=== PATIENT | female | born 1995 | race Caucasian/White ===

== ENCOUNTER 2020-06-06 19:00 | Inpatient (IN) | payer MEDICAID ==
[~2020-06-06] VITALS: Ht 160 cm; Wt 108.6 kg
--- NOTE | 2020-06-06 19:20 | NUR ---
PADMA JAIN presented to unit via ambulatory from ED, accompanied by s.o, with c/o INDUCTION. PADMA JAIN weighed, gowned, voided, and to bed. EFHM and TOCO applied, VS taken. PADMA JAIN oriented to bed controls, call light, TV, heat, and A/C controls.
[2020-06-06 19:50] VITALS: BP 136/44
[2020-06-06 20:35] VITALS: BP 120/74
[2020-06-06] MEDS ORDERED: NS IV 1000 ML 1,000 ML ONE (21:39)
[2020-06-06] MEDS ORDERED: D5 LR IV SOLUTION 1,000 ML IV ONE (21:39)
[2020-06-06] MEDS ORDERED: MISOPROSTOL 100 MCG (CYTOTEC) TAB PO ONE (22:15)
[2020-06-06] MEDS ORDERED: MINERAL OIL CONCENTRATE 99.9% 15 ML UDC TOP PRN (22:15)
[2020-06-06] MEDS ORDERED: NS IV 1000 ML 1,000 ML IV SCH (22:15)
[2020-06-06] MEDS ORDERED: TERBUTALINE INJ 1 MG/ML (BRETHINE) AMP SC PRN (22:15)
[2020-06-06 22:25] VITALS: BP 128/86
[2020-06-06 22:42] LABS: BASOPHILS % (AUTO) 0 % (0-10); EOSINOPHILS # (AUTO) 0.2 10^3/uL (0.0-0.3); EOSINOPHILS % (AUTO) 2 % (0-10); HEMATOCRIT 39 % (35-52); HEMOGLOBIN 13.3 g/dL (11.5-16.0); LYMPHOCYTES # (AUTO) 2.1 10^3/uL (1.0-4.0); LYMPHOCYTES % (AUTO) 25 % (12-44); MEAN CORPUSCULAR HEMOGLOBIN 30 pg (25-34); MEAN CORPUSCULAR HGB CONC 34 g/dL (32-36); MEAN CORPUSCULAR VOLUME 90 fL (80-99); MEAN PLATELET VOLUME 10.8 fL (9.0-12.2); MONOCYTES # (AUTO) 0.5 10^3/uL (0.0-1.0); MONOCYTES % (AUTO) 6 % (0-12); NEUTROPHILS # (AUTO) 5.6 10^3/uL (1.8-7.8); NEUTROPHILS % (AUTO) 66 % (42-75); PLATELET COUNT 165 10^3/uL (130-400); WHITE BLOOD COUNT 8.4 10^3/uL (4.3-11.0)
[2020-06-06 22:45] VITALS: BP 117/76
[2020-06-06] MEDS: D5 LR IV SOLUTION 1,000 ML IV SCH (22:47)
[2020-06-07] VITALS (84 sets, daily range): BP systolic 87–174; BP diastolic 48–96
[2020-06-07] MEDS ORDERED: MISOPROSTOL 100 MCG (CYTOTEC) TAB PO SCH (02:15)
[2020-06-07] MEDS ORDERED: CATHETER FLUSH 10 ML SYR IV SCH ×2 (06:00→22:00)
[2020-06-07] MEDS: D5 LR IV SOLUTION 1,000 ML IV SCH ×2 (06:26→14:27)
[2020-06-07] MEDS ORDERED: fentaNYL 2 mcg/ml BUPIVA 0.125 100 ML ONE (09:18)
[2020-06-07] MEDS ORDERED: LIDOCAINE PF 2% 5 ML (XYLOCAINE) VIAL ONE (10:06)
[2020-06-07] MEDS ORDERED: fentaNYL INJECTION 100 MCG/2 ML AMP ONE (10:06)
[2020-06-07] MEDS ORDERED: BUPIVACAINE 0.25% 30 ML (SENSORCAINE) VIAL ONE (10:06)
[2020-06-07] MEDS ORDERED: ONDANSETRON 4 MG/2 ML (SDV) Z0FRAN ONE (10:45)
[2020-06-07] MEDS ORDERED: LACTATED RINGERS 1,000 ML IV SCH (10:46)
[2020-06-07] MEDS ORDERED: diphenhydrAMINE 50 MG/ML INJ (BENADRYL) IV PRN (11:00)
[2020-06-07] MEDS ORDERED: NALOXONE 0.4 MG/ML 1 ML (NARCAN) VIAL IV PRN (11:00)
[2020-06-07] MEDS ORDERED: EPIDURAL (fentaNYL 2 MCG/ML BUPIVA 0.125%)100 ML BAG EPI PRN (11:00)
[2020-06-07] MEDS: ONDANSETRON 4 MG/2 ML (SDV) Z0FRAN IV PRN ×2 (11:10→16:56)
[2020-06-07] MEDS ORDERED: OXYTOCIN PRE-MIX DRIP 500 ML IV ONE (11:33)
[2020-06-07] MEDS ORDERED: OXYTOCIN PRE-MIX DRIP 500 ML IV SCH ×2 (11:34→17:32)
[2020-06-07] MEDS ORDERED: LIDOCAINE/EPI 2% 1:200,00 (XYLOCAINE) 10 ML VIAL ONE (16:52)
[2020-06-07] MEDS ORDERED: TETANUS,DIPTH,PERTUSS P/F (BOOSTRIX) 0.5 ML VIAL IM ONE (17:45)
[2020-06-07] MEDS ORDERED: BENZOCAINE/MENTHOL (DERMOPLAST) 60 ML CAN TP PRN (17:45)
[2020-06-07] MEDS ORDERED: MEASLES,MUMPS,RUBELLA 1 EA INJ SQ ONE (17:45)
[2020-06-07] MEDS ORDERED: WITCH HAZEL(TUCKS) 40 EA JAR TOP PRN (17:45)
--- NOTE | 2020-06-07 17:51 | History & Physical-OB ---
OB - Chief Complaint & HPI Date/Time Date of Admission: Date of Admission: Jun 06, 2020 at 19:13 Date seen by a Provider: Jun 07, 2020 Time Seen by a Provider: 16:45 Chief Complaint/History OB-Reason for Admission/Chief: Induction of Labor Hx : 5 Hx Para: 2 Expected Date of Delivery: Jun 25, 2020 Gestational Age in Weeks: 37 Gestational Age in Days: 0 Indication for induction: medical complication History of Labs O+, Ab neg Rub Imm GC/Chyl neg HIV/HepB/RPR NR Postive 3 hr GTT Allergies and Home Medications Allergies Coded Allergies: adhesive tape (Verified Allergy, Unknown, 06/06/20) codeine (Verified Allergy, Unknown, 06/06/20) latex (Verified Allergy, Unknown, 06/06/20) Patient Home Medication List Home Medication List Reviewed: Yes OB - History Hx of Present Care: Yes Obstetrical Complications: Gestational Diabetes, Pre-eclampsia Medical Complications: None Obstetrical History Hx : 5 Hx Para: 2 Hx # Term Pregnancies: 2 Number of Living Children: 2 Patient Past Medical History Obesity GDM Social History/Family History HIV/AIDS: No Recent Infectious Disease Expo: No Sexually Transmitted Disease: No Alcohol Use: Denies Use Recreational Drug Use: No Immunizations Hepatitis A: Yes Hepatitis B: Yes Tetanus Booster (TDap): Less than 5yrs Rubella: immune RPR/VDRL: Negative GBS Status: Negative HBsAG: Negative OB - Admission Exam Physical Exam Vitals: Vital Signs 06/07/20 06/07/20 09:45 14:02 Temp 36.5 Pulse 74 Resp 20 B/P (MAP) 89/53 (65) Pulse Ox 100 O2 Delivery Room Air HEENT: NCAT Heart: Rhythm Normal Lungs: Clear Abdomen: Gravid Cervical Dilatation: 10cm Effacement: 100% Station: +2 Membranes: Ruptured Amniotic Fluid: Clear Heart Rate: 140's Decelerations: Early Decelerations Short Term Variability: Present Contractions on Admission: < 5 Minutes Apart Intensity: Firm Labs Laboratory Tests Test 06/06/20 21:45 Range/Units White Blood Count 8.4 4.3-11.0 10^3/uL Red Blood Count 4.37 3.80-5.11 10^6/uL Hemoglobin 13.3 11.5-16.0 g/dL Hematocrit 39 35-52 % Mean Corpuscular Volume 90 80-99 fL Mean Corpuscular Hemoglobin 30 25-34 pg Mean Corpuscular Hemoglobin Concent 34 32-36 g/dL Red Cell Distribution Width 13.4 10.0-14.5 % Platelet Count 165 130-400 10^3/uL Mean Platelet Volume 10.8 9.0-12.2 fL Immature Granulocyte % (Auto) 1 % Neutrophils (%) (Auto) 66 42-75 % Lymphocytes (%) (Auto) 25 12-44 % Monocytes (%) (Auto) 6 0-12 % Eosinophils (%) (Auto) 2 0-10 % Basophils (%) (Auto) 0 0-10 % Neutrophils # (Auto) 5.6 1.8-7.8 10^3/uL Lymphocytes # (Auto) 2.1 1.0-4.0 10^3/uL Monocytes # (Auto) 0.5 0.0-1.0 10^3/uL Eosinophils # (Auto) 0.2 0.0-0.3 10^3/uL Basophils # (Auto) 0.0 0.0-0.1 10^3/uL Immature Granulocyte # (Auto) 0.1 0.0-0.1 10^3/uL OB - Assessment/Plan/Diagnosis Assessment Assessment: induction of labor Admission Dx Pre eclampsia Diet controlled GDM 37 week gestation Admission Status: Inpatient Order (span 2 midnights) Reason for Inpatient Admission: Labor Plan Plan: Induction Induction Method: per Misoprostol Protocol Other Plan 25 yo @ 37.0 here for IOL for Pre eclampsia and diet controlled GDM Plan - cytotec to Pitocin - GBS neg - Diet control GDM - epidural ok when requested Copy Copies To 1: JAIRO CEVALLOS MD, HOLLY R MD Jun 07, 2020 17:51
--- NOTE | 2020-06-07 17:55 | OB Labor & Delivery Record ---
Vag Delivery Note Vag Delivery Note Date of Delivery: 06/07/20 Preoperative Diagnosis: Shanika Waldrop is a (25 /Para / ,Gestational Age (wks)37 here for IOL for pre eclampsia and diet controlled GDM Postoperative Diagnosis: Same Surgeon: JAIRO CEVALLOS Insurance Follow Up Representative: Luba Mendoza MS3 Anesthesia: Epidural Delivery Type: @ 9814 Findings: Viable Male infant, apgars 9/9, weight 6#7, 2930 grams Lacerations: None Intact placenta with 3 vessel cord. No nuchal cord, body cord or shoulder dyst ocia Estimated Blood Loss: 125 ml Complications: None Condition: Stable Description of Procedure: The patient is a 25 year old female who presented for IOL. She was admitted and informed consent was obtained. Her labor course was unremarkable. She progressed to complete dilatation and began to push. She was then set up for delivery. The infant's head was delivered atraumatically in OP position. The shoulders and remainder of the 's body were then delivered without difficulty. Upon delivery, the head was held below the level of the perineum and the mouth and nares were bulb suctioned. The cord was doubly clamped and cut by FOB after 2 min delay and the was attended to by the pediatric staff on maternal abdomen. An intact placenta with 3-vessel cord delivered via [place] and there was found to be minimal bleeding.~ Vigorous fundal massage was performed and the fundus was found to be firm. IV oxytocin was given. Examination of the vagina and perineum revealed no lacerations that required repair. Following the repair, sponge, instrument and needle counts were correct. Mom and baby were both in stable condition in the labor suite. Vitals - Labs Vital Signs - I&O Vital Signs Date Time Temp Pulse Resp B/P (MAP) Pulse Ox O2 Delivery O2 Flow Rate FiO2 06/07/20 14:02 74 20 89/53 (65) 100 Room Air 06/07/20 13:57 64 20 102/62 (75) 100 Room Air 06/07/20 13:54 65 20 108/65 (79) 100 Room Air 06/07/20 13:47 85 20 106/55 (72) 100 Room Air 06/07/20 13:42 78 20 111/56 (74) 100 Room Air 06/07/20 13:35 95 20 116/58 (77) 100 Room Air 06/07/20 13:32 80 20 114/55 (74) 100 Room Air 06/07/20 13:32 83 20 117/58 (77) 100 Room Air 06/07/20 13:27 68 20 113/56 (75) 100 Room Air 06/07/20 13:18 68 20 118/58 (78) 100 Room Air 06/07/20 13:08 73 20 101/56 (71) 100 Room Air 06/07/20 13:02 65 20 96/53 (67) 100 Room Air 06/07/20 12:57 65 20 105/55 (72) 100 Room Air 06/07/20 12:51 69 20 92/51 (65) 100 Room Air 06/07/20 12:45 65 20 87/53 (64) 100 Room Air 06/07/20 12:41 62 20 93/55 (68) 100 Room Air 06/07/20 12:39 60 20 87/48 (61) 100 Room Air 06/07/20 12:26 169 20 99/56 (70) 100 Room Air 06/07/20 12:23 68 20 111/67 (82) 100 Room Air 06/07/20 12:17 64 20 111/66 (81) 100 Room Air 06/07/20 12:11 79 20 109/65 (80) 99 Room Air 06/07/20 12:09 63 20 111/69 (83) 99 Room Air 06/07/20 12:01 65 20 104/64 (77) 99 Room Air 06/07/20 11:59 67 20 98/56 (70) 99 Room Air 06/07/20 11:55 72 20 102/59 (73) 99 Room Air 06/07/20 11:52 71 20 102/61 (75) 97 Room Air 06/07/20 11:49 68 20 102/56 (71) 97 Room Air 06/07/20 11:46 71 20 95/50 (65) 97 Room Air 06/07/20 11:43 71 20 99/54 (69) 99 Room Air 06/07/20 11:40 69 20 101/51 (68) 98 Room Air 06/07/20 11:36 70 20 102/59 (73) 98 Room Air 06/07/20 11:34 74 20 104/57 (73) 97 Room Air 06/07/20 11:30 76 20 110/57 (74) 99 Room Air 06/07/20 11:28 70 20 102/56 (71) 99 Room Air 06/07/20 11:25 88 20 99/57 (71) 99 Room Air 06/07/20 11:22 83 20 101/57 (72) 99 Room Air 06/07/20 11:18 74 20 104/62 (76) 99 Room Air 06/07/20 11:15 83 20 103/50 (67) 98 Room Air 06/07/20 11:10 97 20 108/55 (72) 98 Room Air 06/07/20 11:05 106 20 119/69 (86) 98 Room Air 06/07/20 11:01 84 20 118/60 (79) 98 Room Air 06/07/20 10:58 80 20 121/64 (83) 98 Room Air 06/07/20 10:56 80 20 119/58 (78) 98 Room Air 06/07/20 10:51 81 20 138/82 (100) 98 Room Air 06/07/20 10:50 120 20 142/86 (104) 98 Room Air 06/07/20 10:44 96 20 131/75 (93) 98 Room Air 06/07/20 10:41 93 20 131/86 (101) 98 Room Air 06/07/20 10:38 103 20 137/88 (104) 100 Room Air 06/07/20 10:35 85 20 135/89 (104) 99 Room Air 06/07/20 10:32 88 20 131/80 (97) 99 Room Air 06/07/20 10:29 88 20 129/81 (97) 100 Room Air 06/07/20 10:26 91 20 129/84 (99) 100 Room Air 06/07/20 10:23 82 20 128/73 (91) 100 Room Air 06/07/20 10:21 86 20 136/73 (94) 100 Room Air 06/07/20 09:45 36.5 75 20 142/85 (104) 06/07/20 08:45 87 20 128/67 (87) 06/07/20 07:45 78 20 131/79 (96) 06/07/20 06:43 84 20 138/62 (87) 06/07/20 05:45 83 20 122/67 (85) 10/13/20 04:45 66 20 135/69 (91) 06/07/20 04:00 36.1 76 20 137/67 (90) 06/07/20 02:45 36.3 86 20 116/60 (78) 06/07/20 01:45 76 20 119/56 (77) 06/07/20 00:45 72 20 128/74 (92) 06/07/20 00:00 71 20 126/81 (96) 06/06/20 22:45 71 20 117/76 (90) 06/06/20 22:25 37.3 84 20 128/86 (100) 06/06/20 20:35 82 18 120/74 (89) 98 06/06/20 19:50 36.8 94 18 136/44 (74) 97 I & O 06/07/20 07:00 Intake Total 1000 ml Balance 1000 ml Labs Laboratory Tests 06/06/20 21:45: White Blood Count 8.4, Red Blood Count 4.37, Hemoglobin 13.3, Hematocrit 39, Mean Corpuscular Volume 90, Mean Corpuscular Hemoglobin 30, Mean Corpuscular Hemoglobin Concent 34, Red Cell Distribution Width 13.4, Platelet Count 165, Mean Platelet Volume 10.8, Immature Granulocyte % (Auto) 1, Neutrophils (%) (Auto) 66, Lymphocytes (%) (Auto) 25, Monocytes (%) (Auto) 6, Eosinophils (%) (Auto) 2, Basophils (%) (Auto) 0, Neutrophils # (Auto) 5.6, Lymphocytes # (Auto) 2.1, Monocytes # (Auto) 0.5, Eosinophils # (Auto) 0.2, Basophils # (Auto) 0.0, Immature Granulocyte # (Auto) 0.1 JAIRO CEVALLOS MD Jun 07, 2020 17:55
[2020-06-07] MEDS: IBUPROFEN 600 MG (MOTRIN) TAB PO SCH (19:23)
[2020-06-07] MEDS: ACETAMINOPHEN 500 MG TAB (TYLENOL) PO SCH (21:12)
[2020-06-07] MEDS: DOCUSATE SODIUM 100 MG (COLACE) CAP PO SCH (21:12)
[2020-06-08 00:23] VITALS: BP 114/74
[2020-06-08] MEDS: IBUPROFEN 600 MG (MOTRIN) TAB PO SCH ×3 (00:23→12:06)
[2020-06-08 03:40] VITALS: BP 114/68
[2020-06-08] MEDS: ACETAMINOPHEN 500 MG TAB (TYLENOL) PO SCH ×3 (03:40→15:36)
[2020-06-08 05:44] LABS: BASOPHILS % (AUTO) 0 % (0-10); EOSINOPHILS # (AUTO) 0.2 10^3/uL (0.0-0.3); EOSINOPHILS % (AUTO) 2 % (0-10); HEMATOCRIT 34 % (35-52); HEMOGLOBIN 11.5 g/dL (11.5-16.0); LYMPHOCYTES # (AUTO) 1.9 10^3/uL (1.0-4.0); LYMPHOCYTES % (AUTO) 25 % (12-44); MEAN CORPUSCULAR HEMOGLOBIN 30 pg (25-34); MEAN CORPUSCULAR HGB CONC 34 g/dL (32-36); MEAN CORPUSCULAR VOLUME 90 fL (80-99); MEAN PLATELET VOLUME 10.9 fL (9.0-12.2); MONOCYTES # (AUTO) 0.4 10^3/uL (0.0-1.0); MONOCYTES % (AUTO) 5 % (0-12); NEUTROPHILS % (AUTO) 66 % (42-75); PLATELET COUNT 144 10^3/uL (130-400); WHITE BLOOD COUNT 7.5 10^3/uL (4.3-11.0)
[2020-06-08] MEDS ORDERED: IBUP-844 PO (06:38)
[2020-06-08 08:15] VITALS: BP 120/72
[2020-06-08] MEDS: DOCUSATE SODIUM 100 MG (COLACE) CAP PO SCH (09:04)
--- NOTE | 2020-06-08 09:06 | Anesthesia-Regional Post-Op ---
Regional Patient Condition Mental Status: Alert, Oriented x3 Circulation: Same as Pre-Op Headache: Absent Sensation: Full Recovery Motor Block: Absent Post Op Complications Complications None Follow Up Care/Instructions Patient Instructions None needed. Anesthesia/Patient Condition Patient is doing well, no complaints, stable vital signs, no apparent adverse anesthesia problems. No complications reported per nursing. CHON JEAN BAPTISTE CRNA Jun 08, 2020 09:06
[2020-06-08 12:07] VITALS: BP 125/76
--- NOTE | 2020-06-08 13:12 | Discharge Summary ---
Discharge Summary Hospital Course Hospital Course Date of Admission: Jun 06, 2020 at 19:13 Admission Diagnosis : Family Physician/Provider: Date of Discharge: 06/08/20 Discharge Diagnosis: s/p spontaneous vaginal delivery preeclampsia diet controlled gestational diabetes Hospital Course: Pt admitted and underwent IOL for preeclampsia, unremarkable labor and delivery and course, blood pressure normal after delivery, no anemia. Labs and Pending Lab Test: Laboratory Tests 06/08/20 05:09: White Blood Count 7.5, Red Blood Count 3.78L, Hemoglobin 11.5, Hematocrit 34L, Mean Corpuscular Volume 90, Mean Corpuscular Hemoglobin 30, Mean Corpuscular Hemoglobin Concent 34, Red Cell Distribution Width 13.5, Platelet Count 144, Mean Platelet Volume 10.9, Immature Granulocyte % (Auto) 1, Neutrophils (%) ( Auto) 66, Lymphocytes (%) (Auto) 25, Monocytes (%) (Auto) 5, Eosinophils (%) (Auto) 2, Basophils (%) (Auto) 0, Neutrophils # (Auto) 5.0, Lymphocytes # (Auto) 1.9, Monocytes # (Auto) 0.4, Eosinophils # (Auto) 0.2, Basophils # (Auto) 0.0, Immature Granulocyte # (Auto) 0.0 Home Meds Active Ibu (Ibuprofen) 600 Mg Tablet 600 Mg PO Q6HR PRN Assessment/Pt DC Instructions Follow up with Dr. Alvarez in 6 weeks for visit. Discharge Diet: No Restrictions Activity as Tolerated: Yes (avoid strenuous acitivity x 6 weeks) Discharge Physical Examination Allergies: Coded Allergies: adhesive tape (Verified Allergy, Unknown, 06/06/20) codeine (Verified Allergy, Unknown, 06/06/20) latex (Verified Allergy, Unknown, 06/06/20) General Appearance: No Apparent Distress, WD/WN Respiratory: Lungs Clear, Normal Breath Sounds Cardiovascular: Regular Rate, Rhythm, No Murmur Gastrointestinal: Normal Bowel Sounds, Non Tender, Other (fundus firm below umbilicus) Extremity: Pedal Edema Skin: Normal Color, Warm/Dry Neurologic/Psychiatric: Alert, Normal Mood/Affect Copy Copies To 1: JAIRO ALVAREZ MD Clinical Quality Measures DVT/VTE Risk/Contraindication: Risk Factor Score Per Nursin RFS Level Per Nursing on Admit: 1=Low/No VTE PPX COLLIN PUENTES MD Jun 08, 2020 13:12
[2020-06-08 16:15] VITALS: BP 120/77
--- NOTE | 2020-06-08 18:15 | NUR ---
DISCHARGE INSTRUCTIONS GIVEN TO PATIENT. PT VERBALIZES UNDERSTANDING OF INSTRUCTIONS AND SIGNS TO VERIFY. PT VERBALIZES UNDERSTANDING OF APPOINTMENT SCHEDULED. PT VOICES NO QUESTIONS AT THIS TIME. PT AWAITING DISMISSAL FOR BABY.
== END 2020-06-08 20:05 | disposition home or self-care (01) | DRG 807 ==
LOC: LDRP 19:13 → WS 06-07 20:20
PROVIDERS: ADMIT Family Medicine; ATTEND Family Medicine
PROC: 10E0XZZ Delivery of Products of Conception, External Approach (ICD-10-PCS; principal; 2020-06-07)
PROC: 3E0DXGC Introduction of Other Therapeutic Substance into Mouth and Pharynx, External Approach (ICD-10-PCS; 2020-06-07)
DX: O14.94 Unspecified pre-eclampsia, complicating childbirth (principal); Z37.0 Single live birth; O24.420 Gestational diabetes mellitus in childbirth, diet controlled; O99.213 Obesity complicating pregnancy, third trimester; E66.9 Obesity, unspecified; Z3A.37 37 weeks gestation of pregnancy
CPT/HCPCS: 36415; 85025; 86850; 86900; 86901

== ENCOUNTER 2021-10-28 17:42 | Emergency (ER) | payer MEDICAID ==
[~2021-10-28 17:42] MED LIST: IBUP-844 PO
--- NOTE | 2021-10-28 17:48 | ED General ---
General Chief Complaint: Abdominal/GI Problems Stated Complaint: VOMITING Source of Information: Patient History of Present Illness Date Seen by Provider: Oct 28, 2021 Time Seen by Provider: 17:46 Initial Comments 26-year-old female presenting with complaints of nausea, vomiting, diarrhea since yesterday. She states that her son was sick on and Saturday with similar symptoms. She has had subjective fever and chills. She has abdominal wall soreness from the nausea and vomiting. She denies any pain with urination. She does have soreness to her rectal area from the amount of diarrhea. She has not had any other ill contacts that she is aware of. She denies any food or any known substance to trigger her symptoms. She has had too numerous to count episodes of n/v/d and the diarrhea is watery. She states she can not even keep down water so she came to the ED. She has dizziness and light headed sensation with standing and changing positions. Timing/Duration: 1 Day Severity: Severe Modifying Factors: worse with Eating Associated Systoms: No Chest Pain, No Cough, No Diaphoresis, No Fever/Chills, No Headaches, No Loss of Appetite, No Malaise; Nausea/Vomiting; No Rash, No Seizure, No Shortness of Air, No Syncope, No Weakness Allergies and Home Medications Allergies Coded Allergies: adhesive tape (Verified Allergy, Unknown, 06/06/20) codeine (Verified Allergy, Unknown, 06/06/20) latex (Verified Allergy, Unknown, 06/06/20) Patient Home Medication List Home Medication List Reviewed: Yes Ibuprofen (Ibu) 600 Mg Tablet, 600 MG PO Q6HR PRN for PAIN-MODERATE (5-7) Prescribed by: COLLIN PUENTES on 06/08/20 0638 Ondansetron (Ondansetron Odt) 4 Mg Tab.rapdis, 4 MG PO Q6H PRN for NAUSEA/VOMITING Prescribed by: CRISTINA MEDEROS on 10/28/211931 Review of Systems Review of Systems Constitutional: No chills; dizziness (with standing and changing positions); No fever EENTM: no symptoms reported Respiratory: no symptoms reported Cardiovascular: no symptoms reported Gastrointestinal: see HPI Genitourinary: No dysuria Musculoskeletal: no symptoms reported Skin: no symptoms reported Psychiatric/Neurological: No Symptoms Reported Past Vhwurfm-[id number]-Hhskgz Hx Patient Social History Tobacco Use?: Yes Tobacco type used: Cigarettes Smoking Status: Current Someday Smoker Use of E-Cig and/or Vaping dev: Yes E-Cig or Vaping type used: Nicotine Use of E-Cig and/or Vaping Indra: Current Everyday User Substance use?: No Alcohol Use?: No Immunizations Up To Date Tetanus Booster (TDap): Less than 5yrs PED Vaccines UTD: Yes Seasonal Allergies Seasonal Allergies: No Past Medical History Surgeries: Yes Abdominal (hernia), Gallbladder Respiratory: No Cardiac: Yes Neurological: No Sexually Transmitted Disease: No HIV/AIDS: No Genitourinary: No Gastrointestinal: Yes Gastroesophageal Reflux Musculoskeletal: No Endocrine: Yes HEENT: No Cancer: No Psychosocial: No Integumentary: No Blood Disorders: No Family Medical History Diabetes mellitus 19 MOTHER (maternal grandfather) Psychosocial problem 19 MOTHER (mother bipolar/depression sister bipolar. ) Physical Exam Vital Signs Vital Signs - First Documented 10/28/21 17:53 Temp 36.3 Pulse 127 Resp 16 B/P (MAP) 142/94 (110) Pulse Ox 100 O2 Delivery Room Air Capillary Refill : Height, Weight, BMI Height: '" Weight: lbs. oz. kg; 42.42 BMI Method: General Appearance: WD/WN, Obese HEENT: PERRL/EOMI; No Moist Mucous Membranes (slightly dry mucous membranes) Neck: Full Range of Motion, Normal Inspection, Non Tender, Supple Respiratory: Chest Non Tender, Lungs Clear, Normal Breath Sounds, No Accessory Muscle Use, No Respiratory Distress Cardiovascular: Normal Peripheral Pulses, Tachycardia Gastrointestinal: No Pulsatile Mass, Soft, Abnormal Bowel Sounds (hyperactive); No Distended, No Guarding, No Rebound; Tenderness (mild diffuse abdominal wall tenderness) Extremity: Normal Capillary Refill, Normal Inspection, No Pedal Edema Neurologic/Psychiatric: Alert, Oriented x3, medical tech II-XII Norm as Tested Skin: Normal Color, Warm/Dry Progress/Results/Core Measures Suspected Sepsis SIRS Temperature: Pulse: Respiratory Rate: Laboratory Tests 10/28/21 18:06: White Blood Count 10.9 Blood Pressure / Mean: Laboratory Tests 10/28/21 18:06: Creatinine 0.64, Platelet Count 255, Total Bilirubin 0.4 Results/Orders Lab Results Laboratory Tests Test 10/28/21 17:55 10/28/21 18:06 Range/Units Urine Color YELLOW Urine Clarity TURBID Urine pH 6.0 5-9 Urine Specific [place] >=1.030 1.016-1.022 Urine Protein 2+ H NEGATIVE Urine Glucose (UA) TRACE H NEGATIVE Urine Ketones NEGATIVE NEGATIVE Urine Nitrite NEGATIVE NEGATIVE Urine Bilirubin 1+ H NEGATIVE Urine Urobilinogen 0.2 < = 1.0 MG/DL Urine Leukocyte Esterase NEGATIVE NEGATIVE Urine RBC (Auto) 3+ H NEGATIVE Urine RBC NONE /HPF Urine WBC NONE /HPF Urine Squamous Epithelial Cells 0-2 /HPF Urine Crystals NONE /LPF Urine Bacteria LARGE H /HPF Urine Casts NONE /LPF Urine Mucus NEGATIVE /LPF Urine Culture Indicated YES Urine Opiates Screen NEGATIVE NEGATIVE Urine Oxycodone Screen NEGATIVE NEGATIVE Urine Methadone Screen NEGATIVE NEGATIVE Urine Propoxyphene Screen NEGATIVE NEGATIVE Urine Barbiturates Screen NEGATIVE NEGATIVE Ur Tricyclic Antidepressants Screen NEGATIVE NEGATIVE Urine Phencyclidine Screen NEGATIVE NEGATIVE Urine Amphetamines Screen NEGATIVE NEGATIVE Urine Methamphetamines Screen NEGATIVE NEGATIVE Urine Benzodiazepines Screen NEGATIVE NEGATIVE Urine Cocaine Screen NEGATIVE NEGATIVE Urine Cannabinoids Screen POSITIVE H NEGATIVE White Blood Count 10.9 4.3-11.0 10^3/uL Red Blood Count 5.64 H 3.80-5.11 10^6/uL Hemoglobin 16.0 11.5-16.0 g/dL Hematocrit 49 35-52 % Mean Corpuscular Volume 86 80-99 fL Mean Corpuscular Hemoglobin 28 25-34 pg Mean Corpuscular Hemoglobin Concent 33 32-36 g/dL Red Cell Distribution Width 14.2 10.0-14.5 % Platelet Count 255 130-400 10^3/uL Mean Platelet Volume 9.4 9.0-12.2 fL Immature Granulocyte % (Auto) 0 % Neutrophils (%) (Auto) 97 H 42-75 % Lymphocytes (%) (Auto) 2 L 12-44 % Monocytes (%) (Auto) 1 0-12 % Eosinophils (%) (Auto) 0 0-10 % Basophils (%) (Auto) 0 0-10 % Neutrophils # (Auto) 10.6 H 1.8-7.8 10^3/uL Lymphocytes # (Auto) 0.2 L 1.0-4.0 10^3/uL Monocytes # (Auto) 0.1 0.0-1.0 10^3/uL Eosinophils # (Auto) 0.0 0.0-0.3 10^3/uL Basophils # (Auto) 0.0 0.0-0.1 10^3/uL Immature Granulocyte # (Auto) 0.0 0.0-0.1 10^3/uL Neutrophils % (Manual) 96 % Lymphocytes % (Manual) 3 % Monocytes % (Manual) 1 % Sodium Level 139 135-145 MMOL/L Potassium Level 4.3 3.6-5.0 MMOL/L Chloride Level 105 98-107 MMOL/L Carbon Dioxide Level 21 21-32 MMOL/L Anion Gap 13 5-14 MMOL/L Blood Urea Nitrogen 17 7-18 MG/DL Creatinine 0.64 0.60-1.30 MG/DL Estimat Glomerular Filtration Rate 126 BUN/Creatinine Ratio 27 Glucose Level 139 H 70-105 MG/DL Calcium Level 9.7 8.5-10.1 MG/DL Corrected Calcium 8.5-10.1 MG/DL Total Bilirubin 0.4 0.1-1.0 MG/DL Aspartate Amino Transf (AST/SGOT) 14 5-34 U/L Alanine Aminotransferase (ALT/SGPT) 20 0-55 U/L Alkaline Phosphatase 130 40-136 U/L Total Protein 8.0 6.4-8.2 GM/DL Albumin 5.1 H 3.2-4.5 GM/DL Lipase 12 8-78 U/L My Orders Orders - CRISTINA MEDEROS MD Ua Culture If Indicated (10/28/21 17:48) Urine Bedside (10/28/21 17:48) Drug Screen Stat (Urine) (10/28/21 17:48) Comprehensive Metabolic Panel (10/28/21 18:01) Lipase (10/28/21 18:01) Ed Iv/Invasive Line Start (10/28/21 18:01) Cbc With Automated Diff (10/28/21 18:01) Ns Iv 1000 Ml (Sodium Chloride 0.9%) (10/28/21 18:01) Ondansetron Injection (Zofran Injectio (10/28/21 18:01) Pantoprazole Injection (Protonix Injecti (10/28/21 18:01) Urine Culture (10/28/21 17:55) Manual Differential (10/28/21 18:06) Ns Iv 1000 Ml (Sodium Chloride 0.9%) (10/28/21 19:33) Rx-Ondansetron Po (Rx-Zofran Po) (10/28/21 19:45) Medications Given in ED Current Medications Medications Dose Ordered Sig/Iveth Route Start Time Stop Time Status Last Admin Dose Admin Ondansetron HCl 4 mg Q6H PRN PO 10/28/21 19:45 10/28/21 20:41 DC 10/28/21 20:41 4 MG Vital Signs/I&O 10/28/21 10/28/21 10/28/21 17:53 18:35 19:51 Temp 36.3 Pulse 127 86 87 Resp 16 18 16 B/P (MAP) 142/94 (110) 127/75 119/93 Pulse Ox 100 100 98 O2 Delivery Room Air Room Air Room Air Capillary Refill : Progress Note #1: Progress Note Patient provided urine sample on arrival. Will send for urinalysis and evaluate for any substances to be contributing to her nausea and vomiting. Obtain IV and labs to check for electrolyte imbalance, renal or hepatic issues. Give IV fluids 1 L normal saline for hydration, Zofran 4 mg IV for nausea and vomiting, Protonix 40 mg IV for gastritis and irritation from her nausea and vomiting. Differential diagnosis includes colitis, diverticulitis, gastroenteritis, food poisoning, UTI, pyelonephritis Progress Note #2: Time: 18:18 Progress Note CBC shows WBC of 10.9 with left shift. UA concentrated with specific gravity >1.030. She is currently on her menstrual cycle and so she has 3+ blood. There is a large amount of bacteria but pt denies UTI symptoms. UDS shows positive for THC. Progress Note #3: Time: 19:24 Progress Note Chemistry panel looked ok and no acute significant abnormality. Pt tolerating ice chips. On recheck of vitals she has improved heart rate but was still a little dizzy with changing position so will repeat IVF 1 L NS prior to di scharge. Will discharge on Zofran ODT. Counseled that UA showed bacteria but with no UTI symptoms will defer antibiotic for now and have her wait on culture. If it shows she needs antibiotic will call one in or send to her pcp to have them order a med. Also advised if she starts having UTI symptoms to call pcp about it and see about getting med started. Departure Impression Primary Impression: Nausea, vomiting, and diarrhea Disposition: HOME, SELF-CARE Condition: Stable Departure-Patient Inst. Decision time for Depature: 19:55 Referrals: NO,LOCAL PHYSICIAN (PCP) Primary Care Physician Patient Instructions: CLEAR LIQUID DIET ADULT/CHILD, Dehydration, Adult ED, Diarrhea, Adult ED, Nausea and Vomiting, Adult ED Add. Discharge Instructions: Stay well hydrated and drink plenty of fluids and electrolyte drinks. Use the dissolving nausea medicine to help keep your stomach settled. Check with clinic if not improving or having continued concerns All discharge instructions reviewed with patient and/or family. Voiced understanding. Scripts Ondansetron (Ondansetron Odt) 4 Mg Tab.rapdis 4 MG PO Q6H PRN for NAUSEA/VOMITING for 3 Days, #12 TAB 0 Refills Prov: CRISTINA MEDEROS MD 10/28/21 CRISTINA MEDEROS MD Oct 28, 2021 17:48
[2021-10-28 17:53] VITALS: BP 142/94
[2021-10-28 17:59] LABS: COLOR,URINE YELLOW; GLUCOSE, URINE (UA) TRACE (NEGATIVE); KETONES,URINE NEGATIVE (NEGATIVE); LEUKOCYTE ESTERASE ,URINE NEGATIVE (NEGATIVE); NITRITE,URINE NEGATIVE (NEGATIVE); PROTEIN,URINE 2+ (NEGATIVE)
[2021-10-28] MEDS ORDERED: ONDANSETRON 4 MG/2 ML (SDV) Z0FRAN IVP STA (18:01)
[2021-10-28] MEDS ORDERED: PANTOPRAZOLE 40 MG (PROTONIX) VIAL IV STA (18:01)
[2021-10-28] MEDS ORDERED: NS IV 1000 ML 1,000 ML IV STA ×2 (18:01→19:33)
[2021-10-28 18:03] LABS: BACTERIA,URINE LARGE /HPF; BILIRUBIN,URINE 1+ (NEGATIVE); CLARITY,URINE TURBID; SQUAMOUS EPITHELIAL CELL,UR 0-2 /HPF
[2021-10-28 18:08] LABS: AMPHETAMINE SCREEN, URINE NEGATIVE (NEGATIVE); BARBITURATE SCREEN URINE NEGATIVE (NEGATIVE); BENZODIAZEPINES SCREEN URINE NEGATIVE (NEGATIVE); CANNABINOID SCREEN, URINE POSITIVE (NEGATIVE); COCAINE SCREEN URINE NEGATIVE (NEGATIVE); METHADONE STAT NEGATIVE (NEGATIVE); METHAMPHETAMINE SCREEN URINE S NEGATIVE (NEGATIVE); OPIATE SCREEN URINE NEGATIVE (NEGATIVE); OXYCODONE STAT NEGATIVE (NEGATIVE); PROPOXYPHENE STAT NEGATIVE (NEGATIVE); TRICYCLIC ANTIDEPRESSANTS SCRE NEGATIVE (NEGATIVE)
[2021-10-28 18:10] LABS: BASOPHILS % (AUTO) 0 % (0-10); EOSINOPHILS % (AUTO) 0 % (0-10); HEMATOCRIT 49 % (35-52); LYMPHOCYTES # (AUTO) 0.2 10^3/uL (1.0-4.0); LYMPHOCYTES % (AUTO) 2 % (12-44); MEAN CORPUSCULAR HEMOGLOBIN 28 pg (25-34); MEAN CORPUSCULAR HGB CONC 33 g/dL (32-36); MEAN CORPUSCULAR VOLUME 86 fL (80-99); MEAN PLATELET VOLUME 9.4 fL (9.0-12.2); MONOCYTES # (AUTO) 0.1 10^3/uL (0.0-1.0); MONOCYTES % (AUTO) 1 % (0-12); NEUTROPHILS # (AUTO) 10.6 10^3/uL (1.8-7.8); NEUTROPHILS % (AUTO) 97 % (42-75); PLATELET COUNT 255 10^3/uL (130-400); WHITE BLOOD COUNT 10.9 10^3/uL (4.3-11.0)
[2021-10-28 18:29] LABS: LYMPHOCYTES % (MANUAL) 3 %; MONOCYTES % (MANUAL) 1 %; NEUTROPHILS % (MANUAL) 96 %
[2021-10-28 18:30] LABS: BUN/CREATININE RATIO 27; CARBON DIOXIDE 21 MMOL/L (21-32); CHLORIDE 105 MMOL/L (98-107); CREATININE SERUM 0.64 MG/DL (0.60-1.30); GFR ESTIMATED 126; POTASSIUM 4.3 MMOL/L (3.6-5.0); SODIUM 139 MMOL/L (135-145)
[2021-10-28 18:31] LABS: ALANINE AMINOTRANSFERASE 20 U/L (0-55); ALBUMIN 5.1 GM/DL (3.2-4.5); ALKALINE PHOSPHATASE 130 U/L (40-136); BILIRUBIN,TOTAL 0.4 MG/DL (0.1-1.0); CALCIUM 9.7 MG/DL (8.5-10.1); GLUCOSE 139 MG/DL (70-105); LIPASE 12 U/L (8-78)
[2021-10-28] MEDS ORDERED: ONDA4TAB11 PO (19:32)
[2021-10-28] MEDS ORDERED: RX-ONDANSETRON 4 MG ODT (ZOFRAN) PPK #4 PO PRN (19:45)
== END 2021-10-28 20:39 | disposition home or self-care (01) ==
LOC: EDUNIT# 17:42 → ER FS 17:43
DX: R11.2 Nausea with vomiting, unspecified (principal); R19.7 Diarrhea, unspecified; F17.210 Nicotine dependence, cigarettes, uncomplicated
CPT/HCPCS: 36415; 80053; 80306; 81000; 83690; 84703; 85007; 85027; 87088

== ENCOUNTER 2022-09-25 21:42 | Emergency (ER) | payer MEDICAID ==
[~2022-09-25] VITALS: Ht 160 cm; Wt 93.6 kg
[~2022-09-25 21:42] MED LIST changes: +ONDA4TAB11 PO
[2022-09-25 21:43] VITALS: BP 131/79
--- NOTE | 2022-09-25 21:52 | ED Lower Extremity ---
General Stated Complaint: PAIN IN R FOOT, Source: patient Exam Limitations: no limitations History of Present Illness Date Seen by Provider: Sep 25, 2022 Time Seen by Provider: 21:38 Initial Comments 27-year-old female presents for right heel pain for 2 weeks. She had an x-ray at urgent care initially that was negative. She saw her primary doctor and had an ultrasound of the area today and she does not know the results yet. He states he has a bruise in the area that just keeps getting larger. No known injury. No known foreign body. Allergies and Home Medications Allergies Coded Allergies: adhesive tape (Verified Allergy, Unknown, 06/06/20) codeine (Verified Allergy, Unknown, 06/06/20) latex (Verified Allergy, Unknown, 06/06/20) Patient Home Medication List Home Medication List Reviewed: Yes Ibuprofen (Ibu) 600 Mg Tablet, 600 MG PO Q6HR PRN for PAIN-MODERATE (5-7) Prescribed by: COLLIN PUENTES on 06/08/20 0638 Ondansetron (Ondansetron Odt) 4 Mg Tab.rapdis, 4 MG PO Q6H PRN for NAUSEA/VOMITING Prescribed by: CRISTINA MEDEROS on 10/28/21 193 Review of Systems Constitutional: no symptoms reported EENTM: no symptoms reported Respiratory: no symptoms reported Cardiovascular: no symptoms reported Gastrointestinal: no symptoms reported Genitourinary: no symptoms reported Musculoskeletal: other (Right heel pain) Skin: no symptoms reported Psychiatric/Neurological: No Symptoms Reported Past Bspjtmt-Brebmc-Xaqfhw Hx Patient Social History Tobacco Use?: No Use of E-Cig and/or Vaping dev: No Substance use?: No Alcohol Use?: No Immunizations Up To Date Tetanus Booster (TDap): Less than 5yrs PED Vaccines UTD: Yes First/Initial COVID19 Vaccinat: Not currently vaccinated Seasonal Allergies Seasonal Allergies: No Past Medical History Surgery/Hospitalization HX: Depression. Pebbles, Hernia repair, mesh removal, Tonsils and adnoids, wisdom teeth removal. Surgeries: Yes Abdominal, Gallbladder Respiratory: No Cardiac: Yes Neurological: No Sexually Transmitted Disease: No HIV/AIDS: No Genitourinary: No Gastrointestinal: Yes Gastroesophageal Reflux Musculoskeletal: No Endocrine: Yes HEENT: No Cancer: No Psychosocial: No Integumentary: No Blood Disorders: No Family Medical History Reviewed Nursing Family Hx Diabetes mellitus 19 MOTHER (maternal grandfather) Psychosocial problem 19 MOTHER (mother bipolar/depression sister bipolar. ) No Pertinent Family Hx Physical Exam Vital Signs Capillary Refill : Height, Weight, BMI Height: '" Weight: lbs. oz. kg; 42.42 BMI Method: General Appearance: WD/WN, no apparent distress HEENT: normal ENT inspection, pharynx normal Neck: non-tender, supple Cardiovascular: regular rate, rhythm, no murmur Respiratory: chest non-tender, no accessory muscle use Gastrointestinal: normal bowel sounds, soft, no organomegaly Feet: left foot non-tender, left foot normal inspection, left foot normal range of motion; right foot other (Right heel has a small circular area of bruising centrally on the plantar heel. This appears to be a plantar wart. Neurovascular motor and sensory intact.) Neurologic/Tendon: normal sensation, normal motor functions, normal tendon functions Neurologic/Psychiatric: alert Skin: normal color, other (As described above) Departure Communication (Admissions) Patient has what appears to be a plantar wart. There is no evidence of infection though it is slightly inflamed. Advised her to follow up with a tornado chaser. Use ibuprofen and Tylenol for pain Impression Primary Impression: Plantar wart of right foot Disposition: 01 HOME, SELF-CARE Condition: Stable Departure-Patient Inst. Referrals: NO,LOCAL PHYSICIAN (PCP) Primary Care Physician Patient Instructions: Plantar Warts (DC) Add. Discharge Instructions: Calling tornado chaser to schedule follow-up appointment. Continue to use ibuprofen and Tylenol as needed for pain. Return to the emergency department for any severe concerns. AUSTIN KEENAN DO Sep 25, 2022 21:52
== END 2022-09-25 21:54 | disposition home or self-care (01) ==
LOC: EDUNIT# 21:42 → ER FS 21:44
DX: B07.0 Plantar wart (principal); Z91.040 Latex allergy status; Z28.310 Unvaccinated for COVID-19
CPT/HCPCS: 99281

== ENCOUNTER 2022-10-28 15:38 | Emergency (ER) | payer MEDICAID ==
--- NOTE | 2022-10-28 15:45 | ED GI ---
General Chief Complaint: Abdominal/GI Problems Stated Complaint: ABD PAIN/VOMITING/DIARRHEA History of Present Illness Date Seen by Provider: Oct 28, 2022 Time Seen by Provider: 15:45 Initial Comments 27-year-old female with PMH of abdominal hernia with mesh placement/cholecystectomy/tonsillectomy, is here with complaints of left upper quadrant and periumbilical pain which began about 2 days ago. Pain is associated with diarrhea on Saturday, and nausea and vomiting which began today. Patient has been able to eat small amounts of food and liquids the past couple of days, but today she has not eaten much due to loss of appetite and nausea. Denies any known sick contacts. Denies dysuria, hematuria, fever and chills, chest pain, headache, URI symptoms. Allergies and Home Medications Allergies Coded Allergies: adhesive tape (Verified Allergy, Unknown, 06/06/20) codeine (Verified Allergy, Unknown, 06/06/20) latex (Verified Allergy, Unknown, 06/06/20) Patient Home Medication List Home Medication List Reviewed: Yes Ibuprofen (Ibu) 600 Mg Tablet, 600 MG PO Q6HR PRN for PAIN-MODERATE (5-7) Prescribed by: COLLIN PUENTES on 06/08/20 0638 Ondansetron (Ondansetron Odt) 4 Mg Tab.rapdis, 4 MG PO Q6H PRN for NAUSEA/VOMITING Prescribed by: CRISTINA MEDEROS on 10/28/21 193 Review of Systems Review of Systems Constitutional: no symptoms reported EENTM: No Symptoms Reported Respiratory: No Symptoms Reported Cardiovascular: No Symptoms Reported Gastrointestinal: Abdominal Pain, Nausea, Poor Appetite Genitourinary: No Symptoms Reported Musculoskeletal: no symptoms reported Skin: no symptoms reported Psychiatric/Neurological: No Symptoms Reported Endocrine: No Symptoms Reported Hematologic/Lymphatic: No Symptoms Reported Past Qlcygrs-Fapbja-Mqbemj Hx Immunizations Up To Date Tetanus Booster (TDap): Less than 5yrs PED Vaccines UTD: Yes First/Initial COVID19 Vaccinat: Not currently vaccinated Seasonal Allergies Seasonal Allergies: No Past Medical History Surgery/Hospitalization HX: Depression. Pebbles, Hernia repair, mesh removal, Tonsils and adnoids, wisdom teeth removal. Surgeries: Yes Abdominal, Gallbladder Respiratory: No Cardiac: Yes Neurological: No Sexually Transmitted Disease: No HIV/AIDS: No Genitourinary: No Gastrointestinal: Yes Gastroesophageal Reflux Musculoskeletal: No Endocrine: Yes HEENT: No Cancer: No Psychosocial: No Integumentary: No Blood Disorders: No Family Medical History Diabetes mellitus 19 MOTHER (maternal grandfather) Psychosocial problem 19 MOTHER (mother bipolar/depression sister bipolar. ) No Pertinent Family Hx Physical Exam Vital Signs Vital Signs - First Documented 10/28/22 15:42 Temp 36.6 Pulse 70 Resp 16 B/P (MAP) 116/81 (93) Pulse Ox 97 O2 Delivery Room Air Capillary Refill : Height/Weight/BMI Height: '" Weight: lbs. oz. kg; 36.00 BMI Method: General Appearance: WD/WN, mild distress HEENT: PERRL/EOMI Neck: full range of motion Respiratory: chest non-tender, lungs clear, normal breath sounds Cardiovascular: regular rate, rhythm Gastrointestinal: normal bowel sounds, soft, tenderness (Tenderness present in the left upper quadrant and epigastric region) Back: normal inspection, no CVA tenderness Neurologic/Psychiatric: alert, oriented x 3 Skin: normal color Focused Exam Lactate Level 10/28/22 16:00: Lactic Acid Level 0.71 Lactic Acid Level Laboratory Tests Test 10/28/22 16:00 Lactic Acid Level 0.71 MMOL/L (0.50-2.00) Progress/Results/Core Measures Results/Orders Lab Results Laboratory Tests Test 10/28/22 15:45 10/28/22 15:48 10/28/22 16:00 Range/Units Urine Color YELLOW Urine Clarity CLEAR Urine pH 5.5 5-9 Urine Specific [place] >=1.030 1.016-1.022 Urine Protein 1+ H NEGATIVE Urine Glucose (UA) TRACE H NEGATIVE Urine Ketones NEGATIVE NEGATIVE Urine Nitrite NEGATIVE NEGATIVE Urine Bilirubin 2+ H NEGATIVE Urine Urobilinogen 0.2 < = 1.0 MG/DL Urine Leukocyte Esterase NEGATIVE NEGATIVE Urine RBC (Auto) TRACE-I H NEGATIVE Urine RBC 5-10 H /HPF Urine WBC 2-5 /HPF Urine Renal Epithelial Cells 2-5 /HPF Urine Crystals NONE /LPF Urine Bacteria MODERATE H /HPF Urine Casts NONE /LPF Urine Mucus MODERATE H /LPF Urine Culture Indicated YES Urine Test NEGATIVE NEGATIVE Urine Opiates Screen NEGATIVE NEGATIVE Urine Oxycodone Screen NEGATIVE NEGATIVE Urine Methadone Screen NEGATIVE NEGATIVE Urine Propoxyphene Screen NEGATIVE NEGATIVE Urine Barbiturates Screen NEGATIVE NEGATIVE Ur Tricyclic Antidepressants Screen NEGATIVE NEGATIVE Urine Phencyclidine Screen NEGATIVE NEGATIVE Urine Amphetamines Screen NEGATIVE NEGATIVE Urine Methamphetamines Screen NEGATIVE NEGATIVE Urine Benzodiazepines Screen NEGATIVE NEGATIVE Urine Cocaine Screen NEGATIVE NEGATIVE Urine Cannabinoids Screen POSITIVE H NEGATIVE Influenza Type A (RT-PCR) Not Detected Not Detecte Influenza Type B (RT-PCR) Not Detected Not Detecte SARS-CoV-2 RNA (RT-PCR) Not Detected Not Detecte White Blood Count 7.4 4.3-11.0 10^3/uL Red Blood Count 4.96 3.80-5.11 10^6/uL Hemoglobin 14.5 11.5-16.0 g/dL Hematocrit 42 35-52 % Mean Corpuscular Volume 85 80-99 fL Mean Corpuscular Hemoglobin 29 25-34 pg Mean Corpuscular Hemoglobin Concent 34 32-36 g/dL Red Cell Distribution Width 13.4 10.0-14.5 % Platelet Count 257 130-400 10^3/uL Mean Platelet Volume 9.5 9.0-12.2 fL Immature Granulocyte % (Auto) 0 % Neutrophils (%) (Auto) 77 H 42-75 % Lymphocytes (%) (Auto) 16 12-44 % Monocytes (%) (Auto) 5 0-12 % Eosinophils (%) (Auto) 2 0-10 % Basophils (%) (Auto) 0 0-10 % Neutrophils # (Auto) 5.7 1.8-7.8 10^3/uL Lymphocytes # (Auto) 1.2 1.0-4.0 10^3/uL Monocytes # (Auto) 0.4 0.0-1.0 10^3/uL Eosinophils # (Auto) 0.1 0.0-0.3 10^3/uL Basophils # (Auto) 0.0 0.0-0.1 10^3/uL Immature Granulocyte # (Auto) 0.0 0.0-0.1 10^3/uL Sodium Level 136 135-145 MMOL/L Potassium Level 3.7 3.6-5.0 MMOL/L Chloride Level 103 98-107 MMOL/L Carbon Dioxide Level 22 21-32 MMOL/L Anion Gap 11 5-14 MMOL/L Blood Urea Nitrogen 10 7-18 MG/DL Creatinine 0.59 L 0.60-1.30 MG/DL Estimat Glomerular Filtration Rate 128 BUN/Creatinine Ratio 17 Glucose Level 88 70-105 MG/DL Lactic Acid Level 0.71 0.50-2.00 MMOL/L Calcium Level 9.3 8.5-10.1 MG/DL Corrected Calcium 8.5-10.1 MG/DL Total Bilirubin 0.3 0.1-1.0 MG/DL Aspartate Amino Transf (AST/SGOT) 182 H 5-34 U/L Alanine Aminotransferase (ALT/SGPT) 139 H 0-55 U/L Alkaline Phosphatase 113 40-136 U/L Total Protein 7.3 6.4-8.2 GM/DL Albumin 4.7 H 3.2-4.5 GM/DL Lipase 17 8-78 U/L Serum Alcohol < 10 <10 MG/DL My Orders Orders - KANWAL BURRIS MD Drug Screen Stat (Urine) (10/28/22 15:45) Hcg,Qualitative Urine (10/28/22 15:45) Ua Culture If Indicated (10/28/22 15:45) Covid 19 Inhouse Test (10/28/22 15:45) Influenza A And B By Pcr (10/28/22 15:45) Cbc With Automated Diff (10/28/22 15:49) Comprehensive Metabolic Panel (10/28/22 15:49) Lactic Acid Analyzer (10/28/22 15:49) Lipase (10/28/22 15:49) Ondansetron Injection (Zofran Injectio (10/28/22 16:00) Famotidine Injection (Pepcid Injection) (10/28/22 15:52) Ed Iv/Invasive Line Start (10/28/22 15:52) Ns Iv 1000 Ml (Sodium Chloride 0.9%) (10/28/22 16:00) Urine Culture (10/28/22 15:45) Ct Abdomen/Pelvis W (10/28/22 16:22) Iohexol Injection (Omnipaque 350 Mg/Ml 1 (10/28/22 16:30) Received Contrast (Hold Metformin- Contr (10/28/22 16:30) Ns (Ivpb) (Sodium Chloride 0.9% Ivpb Bag (10/28/22 16:30) Alcohol (10/28/22 16:34) Medications Given in ED Current Medications Medications Dose Ordered Sig/Iveth Route Start Time Stop Time Status Last Admin Dose Admin Iohexol 100 ml ONCE ONCE IV 10/28/22 16:30 10/28/22 16:31 DC 10/28/22 16:43 80 ML Ondansetron HCl 4 mg ONCE ONCE IVP 10/28/22 16:00 10/28/22 16:01 DC 10/28/22 16:05 4 MG Sodium Chloride 100 ml ONCE ONCE IV 10/28/22 16:30 10/28/22 16:31 DC 10/28/22 16:43 100 ML Vital Signs/I&O 10/28/22 15:42 Temp 36.6 Pulse 70 Resp 16 B/P (MAP) 116/81 (93) Pulse Ox 97 O2 Delivery Room Air Progress Progress Note : Progress Note 1.INFLAMMATORY COLITIS/ MARIJUANA ABUSE: - CT ABD: Infectious versus inflammatory colitis - CBC: Normal white count - CMP: Elevated AST/ALT: 182/139, serum alcohol level is normal -COVID test and rapid flu test is negative -UDS is positive for marijuana -UA is positive for RBCs and bacteria, bilirubin, glucose, and protein - Pepcid 20mg iv STAT/ Zofran 4mg iv STAT - NS IVF bolus -Patient has been and is afebrile with normal vitals, and a normal white count. Patient likely has inflammatory colitis which is also triggered by marijuana abuse. No need for antibiotics since white count is normal and patient is afebrile -Advised to stop using marijuana -Advised adequate hydration and bland diet -Follow-up with PCP in the next 3 to 5 days -Advised [id number] Pepcid and Maalox as needed epigastric pain -The patient was seen in the ED, and treated appropriately to presentation at a specific point in time. Patient is informed that there is a possibility that disease and illness can evolve and change in acuity rapidly or slowly after patient is discharged from the ER. Precautionary advice given to the patient for immediate return to ER if symptoms worsen or do not resolve, and to seek emergency care sooner rather than later. Pt also advised on the importance of PCP follow up and compliance with management and follow up plan with PCP and/or specialist, as this is part of the management plan. Pt verbally expressed understanding. Diagnostic Imaging Diagonstic Imaging: CT Plain Films/CT/US/NM/MRI: abdomen Comments [facility]. [place], [place] NAME: PADMA JAIN [facility] REC#: [id number] PT STATUS: REG ER : 1995 PHYSICIAN: KANWAL BURRIS MD ADMIT DATE: 10/28/22/ER FS Signed Date of Exam:10/28/22 CT ABDOMEN/PELVIS W EXAMINATION: CT abdomen and pelvis with intravenous contrast. TECHNIQUE: Multiple contiguous axial images were obtained through the abdomen and pelvis after the uneventful administration of intravenous contrast. All CT scans use one or more of the following dose optimizing techniques: automated exposure control, MA and/or KvP adjustment based on patient size and exam type or iterative reconstruction. HISTORY: LUQ and epigastric pain COMPARISON: None available. FINDINGS: Lung bases: The lung bases are clear. Solid organs: Indeterminate right hepatic lesion with central hypoattenuation and possible calcification measuring 0.9 cm. The gallbladder is surgically absent. There is no biliary ductal dilation. Pancreas is normal. Spleen is normal. Adrenal glands are normal. The kidneys are normal without hydronephrosis. Bowel: The stomach and small bowel are normal without obstruction. There is mild diffuse wall thickening of the colon. The appendix is normal. Peritoneum: There is free fluid seen within the pelvis. No loculated fluid collection or free air. No suspicious lymphadenopathy. Vasculature: Normal without aneurysm. Musculoskeletal: No suspicious osseous lesion or compression fracture. There are bilateral L5 pars defects. Pelvis: The uterus and adnexa are normal. The urinary bladder is normal. IMPRESSION: 1. Mild diffuse wall thickening of the colon which can be seen with an infectious or inflammatory colitis in the appropriate clinical setting. 2. No other acute abnormality seen within the abdomen or pelvis. 3. Indeterminate subcentimeter lesion within the superior right hepatic lobe. Consider a follow up CT or MRI in six months to document stability. Dictated by: Dictated on workstation # [id number] Dict: 10/28/221647 Trans: 10/28/221655 [facility] [id number] Interpreted by: SMILEY HARRIS DO Electronically signed by: SMILEY HARRIS DO 10/28/221655 Departure Impression Primary Impression: Colitis Additional Impression: Marijuana abuse Disposition: 01 HOME, SELF-CARE Condition: Improved Departure-Patient Inst. Referrals: RICO CALLAHAN APRN (PCP/Family) Primary Care Physician Patient Instructions: Cannabis Hyperemesis Syndrome, Cannabis Use Disorder, Colitis, Colitis (DC), Irritable Bowel Syndrome (DC), Marijuana Use and Addiction (DC) Add. Discharge Instructions: -Advised to stop using marijuana -Advised adequate hydration and bland diet -Follow-up with PCP in the next 3 to 5 days -Advised [id number]-[id number] Pepcid and Maalox as needed epigastric pain All discharge instructions reviewed with patient and/or family. Voiced understanding. Scripts Ondansetron (Ondansetron Odt) 4 Mg Tab.rapdis 4 MG SL Q4H PRN for NAUSEA/VOMITING for 3 Days, #15 TAB Prov: KANWAL BURRIS MD 10/28/22 KANWAL BURRIS MD Oct 28, 2022 15:45
[2022-10-28 15:51] LABS: CLARITY,URINE CLEAR; COLOR,URINE YELLOW; GLUCOSE, URINE (UA) TRACE (NEGATIVE); KETONES,URINE NEGATIVE (NEGATIVE); LEUKOCYTE ESTERASE ,URINE NEGATIVE (NEGATIVE); NITRITE,URINE NEGATIVE (NEGATIVE); PH,URINE 5.5 (5-9); PROTEIN,URINE 1+ (NEGATIVE)
[2022-10-28] MEDS ORDERED: FAMOTIDINE 20MG/2ML IV (PEPCID) IV STA (15:52)
[2022-10-28 15:56] LABS: HCG,QUALITATIVE URINE NEGATIVE (NEGATIVE)
[2022-10-28 15:57] LABS: BACTERIA,URINE MODERATE /HPF
[2022-10-28 15:58] LABS: BILIRUBIN,URINE 2+ (NEGATIVE)
[2022-10-28] MEDS ORDERED: NS IV 1000 ML 1,000 ML IV SCH (16:00)
[2022-10-28] MEDS ORDERED: ONDANSETRON 4 MG/2 ML (SDV) Z0FRAN IVP ONE (16:00)
[2022-10-28 16:02] LABS: AMPHETAMINE SCREEN, URINE NEGATIVE (NEGATIVE); BARBITURATE SCREEN URINE NEGATIVE (NEGATIVE); BENZODIAZEPINES SCREEN URINE NEGATIVE (NEGATIVE); CANNABINOID SCREEN, URINE POSITIVE (NEGATIVE); COCAINE SCREEN URINE NEGATIVE (NEGATIVE); METHADONE STAT NEGATIVE (NEGATIVE); OPIATE SCREEN URINE NEGATIVE (NEGATIVE); OXYCODONE STAT NEGATIVE (NEGATIVE); PROPOXYPHENE STAT NEGATIVE (NEGATIVE); TRICYCLIC ANTIDEPRESSANTS SCRE NEGATIVE (NEGATIVE)
[2022-10-28 16:03] LABS: BASOPHILS % (AUTO) 0 % (0-10); EOSINOPHILS # (AUTO) 0.1 10^3/uL (0.0-0.3); EOSINOPHILS % (AUTO) 2 % (0-10); HEMATOCRIT 42 % (35-52); HEMOGLOBIN 14.5 g/dL (11.5-16.0); LYMPHOCYTES # (AUTO) 1.2 10^3/uL (1.0-4.0); LYMPHOCYTES % (AUTO) 16 % (12-44); MEAN CORPUSCULAR HEMOGLOBIN 29 pg (25-34); MEAN CORPUSCULAR HGB CONC 34 g/dL (32-36); MEAN CORPUSCULAR VOLUME 85 fL (80-99); MEAN PLATELET VOLUME 9.5 fL (9.0-12.2); MONOCYTES # (AUTO) 0.4 10^3/uL (0.0-1.0); MONOCYTES % (AUTO) 5 % (0-12); NEUTROPHILS # (AUTO) 5.7 10^3/uL (1.8-7.8); NEUTROPHILS % (AUTO) 77 % (42-75); PLATELET COUNT 257 10^3/uL (130-400); WHITE BLOOD COUNT 7.4 10^3/uL (4.3-11.0)
[2022-10-28 16:22] LABS: ALANINE AMINOTRANSFERASE 139 U/L (0-55); ALBUMIN 4.7 GM/DL (3.2-4.5); ALKALINE PHOSPHATASE 113 U/L (40-136); BILIRUBIN,TOTAL 0.3 MG/DL (0.1-1.0); BUN/CREATININE RATIO 17; CALCIUM 9.3 MG/DL (8.5-10.1); CARBON DIOXIDE 22 MMOL/L (21-32); CHLORIDE 103 MMOL/L (98-107); CREATININE SERUM 0.59 MG/DL (0.60-1.30); GFR ESTIMATED 128; GLUCOSE 88 MG/DL (70-105); LIPASE 17 U/L (8-78); POTASSIUM 3.7 MMOL/L (3.6-5.0); SODIUM 136 MMOL/L (135-145); TOTAL PROTEIN 7.3 GM/DL (6.4-8.2)
[2022-10-28] MEDS ORDERED: NS 100 ML (IVPB) BAG IV ONE (16:30)
[2022-10-28] MEDS ORDERED: HOLD METFORMIN - RECEIVED CONTRAST 20 ML VIAL IV SCH (16:30)
[2022-10-28] MEDS ORDERED: IOHEXOL 350 MG/ML 100 ML (OMNIPAQUE 350) VIAL IV ONE (16:30)
--- NOTE | 2022-10-28 16:54 | Diagnostic Imaging Report ---
EXAMINATION: CT abdomen and pelvis with intravenous contrast. TECHNIQUE: Multiple contiguous axial images were obtained through the abdomen and pelvis after the uneventful administration of intravenous contrast. All CT scans use one or more of the following dose optimizing techniques: automated exposure control, MA and/or KvP adjustment based on patient size and exam type or iterative reconstruction. HISTORY: LUQ and epigastric pain COMPARISON: None available. FINDINGS: Lung bases: The lung bases are clear. Solid organs: Indeterminate right hepatic lesion with central hypoattenuation and possible calcification measuring 0.9 cm. The gallbladder is surgically absent. There is no biliary ductal dilation. Pancreas is normal. Spleen is normal. Adrenal glands are normal. The kidneys are normal without hydronephrosis. Bowel: The stomach and small bowel are normal without obstruction. There is mild diffuse wall thickening of the colon. The appendix is normal. Peritoneum: There is free fluid seen within the pelvis. No loculated fluid collection or free air. No suspicious lymphadenopathy. Vasculature: Normal without aneurysm. Musculoskeletal: No suspicious osseous lesion or compression fracture. There are bilateral L5 pars defects. Pelvis: The uterus and adnexa are normal. The urinary bladder is normal. IMPRESSION: 1. Mild diffuse wall thickening of the colon which can be seen with an infectious or inflammatory colitis in the appropriate clinical setting. 2. No other acute abnormality seen within the abdomen or pelvis. 3. Indeterminate subcentimeter lesion within the superior right hepatic lobe. Consider a follow up CT or MRI in six months to document stability. Dictated by: Dictated on workstation # [id number]
[2022-10-28] MEDS ORDERED: ONDA4TAB11 SL (17:05)
[2022-10-28 17:07] VITALS: BP 122/79
== END 2022-10-28 17:07 | disposition home or self-care (01) ==
LOC: EDUNIT# 15:38 → ER FS 15:40
DX: K52.9 Noninfective gastroenteritis and colitis, unspecified (principal); F12.10 Cannabis abuse, uncomplicated; Z28.310 Unvaccinated for COVID-19; Z90.49 Acquired absence of other specified parts of digestive tract; Z98.890 Other specified postprocedural states; Z20.822 Contact with and (suspected) exposure to COVID-19
CPT/HCPCS: 36415; 74177; 80053; 80306; 81000; 83605; 83690; 84703 ×2; 85025; 87088; 87636; 99283; G0480; 80320; Q9967